=== PATIENT | female | born 1970 | race Caucasian/White ===

== ENCOUNTER → 2016-05-13 | Outpatient (CLI) | payer OTHER ==
[~2016-05-13] MED LIST: DEXILANT30 MG PO; LEVOTHYROXIN0.112 MG PO; PROZAC40 MG PO
== END ==
LOC: COL.RAD 05-06 08:53
DX: K21.9 Gastro-esophageal reflux disease without esophagitis (principal); R68.81 Early satiety
CPT/HCPCS: A9541

== ENCOUNTER → 2021-12-15 | Outpatient (CLI) | payer OTHER | LOC: COL.RAD 14:18 | DX: N23 Unspecified renal colic (principal) ==